=== PATIENT | female | born 1960 | race African-American/Black ===

== ENCOUNTER 2024-03-11 04:06 | Emergency (ER) | payer MEDICARE, OTHER ==
[~2024-03-11] VITALS: Ht 170.2 cm; Wt 83.9 kg
[2024-03-11] MEDS ORDERED: ASPIRIN 325 MG TABLET ONE (04:27)
[2024-03-11] MEDS: ASPIRIN 325 MG TABLET PO ONE (04:29)
[2024-03-11 05:00] LABS: BASOPHILS % (AUTO) 0.5 % (0.0-2.0); EOSINOPHILS # (AUTO) 0.4 K/uL (0.0-0.7); EOSINOPHILS % (AUTO) 3.5 % (0.0-6.0); HEMATOCRIT 35 % (33-45); HEMOGLOBIN 11.7 g/dL (11.5-14.8); LYMPHOCYTES # (AUTO) 1.7 K/uL (0.8-4.8); LYMPHOCYTES % (AUTO) 16.7 % (20.0-44.0); MEAN CORPUSCULAR HEMOGLOBIN 29 PG (26.0-33.0); MEAN CORPUSCULAR HGB CONC 34 g/dl (31.0-36.0); MEAN CORPUSCULAR VOLUME 88 fL (82-100); MONOCYTES # (AUTO) 0.9 K/uL (0.1-1.30); MONOCYTES % (AUTO) 8.9 % (2.0-12.0); NEUTROPHILS # (AUTO) 7.2 K/uL (1.8-8.9); NEUTROPHILS % (AUTO) 70.4 % (43.0-81.0); PLATELET COUNT (AUTO) 134 K/uL (150-450); RED BLOOD CELL COUNT(AUTO) 3.99 MIL/uL (4.0-5.2); WHITE BLOOD COUNT (AUTO) 10.2 K/uL (4.3-11.0)
[2024-03-11 05:10] LABS: INR 0.99 (0.91-1.10); PARTIAL THROMBOPLASTIN TIME 27.3 SEC (24.3-34.3); PROTHROMBIN TIME 10.5 SECS (9.2-11.1)
[2024-03-11 05:12] LABS: CALCIUM, SERUM 9.2 mg/dL (8.5-10.1); CARBON DIOXIDE 29 mmol/L (21-32); CHLORIDE 106 mmol/L (98-107); CREATININE 0.7 mg/dL (0.6-1.3); GLUCOSE 74 mg/dL (74-106); POTASSIUM 4.1 mmol/L (3.5-5.1); SODIUM SERUM 144 mmol/L (136-145); UREA NITROGEN, BLOOD 9 mg/dL (7-18)
[2024-03-11 05:18] LABS: ALANINE AMINOTRANSFERASE 29 U/L (12-78); ALBUMIN 3.4 g/dL (3.4-5.0); ALKALINE PHOSPHATASE 68 U/L (46-116); ASPARTATE AMINOTRANSFERASE 22 U/L (15-37); BILIRUBIN,DIRECT 0.1 mg/dL (0.0-0.2); BILIRUBIN,TOTAL 0.3 mg/dL (0.2-1.0); TOTAL PROTEIN, SERUM 7.7 g/dL (6.4-8.2)
[2024-03-11 10:09] VITALS: BP 146/76; TEMP 98.3; O2SAT 100
[2024-03-12] MEDS ORDERED: TOLT2CAP PO (03:54)
[2024-03-12] MEDS ORDERED: SITA100T PO (03:54)
[2024-03-12] MEDS ORDERED: GLIP10TA21 PO (03:54)
[2024-03-12] MEDS ORDERED: SERT50TA12 PO (03:54)
[2024-03-12] MEDS ORDERED: KERENDIA PO (03:54)
[2024-03-12] MEDS ORDERED: PALI3TAB PO (03:54)
[2024-03-12] MEDS ORDERED: LOPE2TAB25 PO (03:54)
[2024-03-12] MEDS ORDERED: LEVE250T2 PO (03:54)
[2024-03-12] MEDS ORDERED: OMEP20TA5 PO (03:54)
[2024-03-12] MEDS ORDERED: METF-440 PO (03:54)
[2024-03-12] MEDS ORDERED: LABE300T2 PO (03:54)
[2024-03-12] MEDS ORDERED: ACET-868 PO (08:20)
[2024-03-12] MEDS ORDERED: ERGO500093 PO (08:20)
== END 2024-03-11 10:11 | disposition home or self-care (01) ==
LOC: ER 04:17
DX: R07.89 Other chest pain (principal); E11.9 Type 2 diabetes mellitus without complications; I10 Essential (primary) hypertension; Z86.73 Personal history of transient ischemic attack (TIA), and cerebral infarction without residual deficits
CPT/HCPCS: 36415; 71045-TC; 80048-TC; 80076-TC; 84484-TC; 85025-TC; 85730-TC

== ENCOUNTER 2024-03-11 18:30 | Inpatient (IN) | payer MEDICARE, OTHER ==
[~2024-03-11] VITALS: Ht 162.6 cm; Wt 83.5 kg
[2024-03-11 18:53] LABS: BASOPHILS # (AUTO) 0.1 K/uL (0.0-0.2); BASOPHILS % (AUTO) 0.5 % (0.0-2.0); EOSINOPHILS # (AUTO) 0.3 K/uL (0.0-0.7); EOSINOPHILS % (AUTO) 2.5 % (0.0-6.0); HEMATOCRIT 37 % (33-45); HEMOGLOBIN 12.1 g/dL (11.5-14.8); LYMPHOCYTES # (AUTO) 2.2 K/uL (0.8-4.8); LYMPHOCYTES % (AUTO) 20.2 % (20.0-44.0); MEAN CORPUSCULAR HEMOGLOBIN 29 PG (26.0-33.0); MEAN CORPUSCULAR HGB CONC 33 g/dl (31.0-36.0); MEAN CORPUSCULAR VOLUME 88 fL (82-100); MONOCYTES # (AUTO) 1.1 K/uL (0.1-1.30); MONOCYTES % (AUTO) 9.8 % (2.0-12.0); NEUTROPHILS # (AUTO) 7.4 K/uL (1.8-8.9); PLATELET COUNT (AUTO) 142 K/uL (150-450); RED BLOOD CELL COUNT(AUTO) 4.18 MIL/uL (4.0-5.2)
[2024-03-11 19:01] LABS: CALCIUM, SERUM 9.5 mg/dL (8.5-10.1); CARBON DIOXIDE 27 mmol/L (21-32); CHLORIDE 101 mmol/L (98-107); CREATININE 0.7 mg/dL (0.6-1.3); GLUCOSE 113 mg/dL (74-106); POTASSIUM 3.9 mmol/L (3.5-5.1); SODIUM SERUM 135 mmol/L (136-145); UREA NITROGEN, BLOOD 12 mg/dL (7-18)
[2024-03-11 19:13] LABS: NT-PRO BNP 72 pg/mL (0-125)
[2024-03-11] MEDS ORDERED: MAGNESIUM HYDROXIDE 30 ML UDC PO PRN (21:30)
[2024-03-11] MEDS ORDERED: ONDANSETRON HCL/PF 4 MG/2 ML VIAL IVP PRN (21:30)
[2024-03-11] MEDS ORDERED: Z GUARD REMEDY 4 OZ OINT TP PRN (21:30)
[2024-03-11] MEDS ORDERED: ACETAMINOPHEN 325 MG TABLET PO PRN (21:30)
[2024-03-11] MEDS ORDERED: NITROGLYCERIN 0.4 MG/TAB BOTTLE SL PRN (21:30)
[2024-03-11] MEDS ORDERED: MAG HYDROX/AL HYDROX/SIMETH 30 ML UDC PO PRN (21:30)
[2024-03-11 23:00] VITALS: BP 153/81; TEMP 97.9; O2SAT 96
[2024-03-11] MEDS: ASPIRIN 81 MG TAB.CHEW PO SCH (23:00)
[2024-03-12 00:09] VITALS: BP 153/81; TEMP 97.9; O2SAT 96
[2024-03-12] MEDS ORDERED: OMEP20TA5 PO (03:54)
[2024-03-12] MEDS ORDERED: LABE300T2 PO (03:54)
[2024-03-12] MEDS ORDERED: SITA100T PO (03:54)
[2024-03-12] MEDS ORDERED: LOPE2TAB25 PO (03:54)
[2024-03-12] MEDS ORDERED: METF-440 PO (03:54)
[2024-03-12] MEDS ORDERED: LEVE250T2 PO (03:54)
[2024-03-12] MEDS ORDERED: KERENDIA PO (03:54)
[2024-03-12] MEDS ORDERED: PALI3TAB PO (03:54)
[2024-03-12] MEDS ORDERED: SERT50TA12 PO (03:54)
[2024-03-12] MEDS ORDERED: TOLT2CAP PO (03:54)
[2024-03-12] MEDS ORDERED: GLIP10TA21 PO (03:54)
[2024-03-12 04:02] VITALS: BP 136/67; TEMP 98.8; O2SAT 96
[2024-03-12 05:50] LABS: BASOPHILS % (AUTO) 0.2 % (0.0-2.0); EOSINOPHILS # (AUTO) 0.2 K/uL (0.0-0.7); EOSINOPHILS % (AUTO) 2.8 % (0.0-6.0); HEMATOCRIT 34 % (33-45); HEMOGLOBIN 11.5 g/dL (11.5-14.8); LYMPHOCYTES # (AUTO) 1.4 K/uL (0.8-4.8); LYMPHOCYTES % (AUTO) 16.1 % (20.0-44.0); MEAN CORPUSCULAR HEMOGLOBIN 29 PG (26.0-33.0); MEAN CORPUSCULAR HGB CONC 34 g/dl (31.0-36.0); MEAN CORPUSCULAR VOLUME 87 fL (82-100); MONOCYTES # (AUTO) 0.8 K/uL (0.1-1.30); MONOCYTES % (AUTO) 9.9 % (2.0-12.0); NEUTROPHILS # (AUTO) 6.1 K/uL (1.8-8.9); PLATELET COUNT (AUTO) 127 K/uL (150-450); RED BLOOD CELL COUNT(AUTO) 3.94 MIL/uL (4.0-5.2); WHITE BLOOD COUNT (AUTO) 8.6 K/uL (4.3-11.0)
[2024-03-12 06:05] LABS: ALANINE AMINOTRANSFERASE 23 U/L (12-78); ALBUMIN 3.3 g/dL (3.4-5.0); ALKALINE PHOSPHATASE 75 U/L (46-116); ASPARTATE AMINOTRANSFERASE 19 U/L (15-37); BILIRUBIN,DIRECT 0.1 mg/dL (0.0-0.2); BILIRUBIN,TOTAL 0.4 mg/dL (0.2-1.0); CARBON DIOXIDE 29 mmol/L (21-32); CHLORIDE 106 mmol/L (98-107); CREATININE 0.6 mg/dL (0.6-1.3); GLUCOSE 81 mg/dL (74-106); MAGNESIUM 1.9 mg/dL (1.8-2.4); PHOSPHORUS 4.2 mg/dL (2.5-4.9); POTASSIUM 3.5 mmol/L (3.5-5.1); SODIUM SERUM 144 mmol/L (136-145); TOTAL PROTEIN, SERUM 7.6 g/dL (6.4-8.2); UREA NITROGEN, BLOOD 10 mg/dL (7-18)
[2024-03-12 08:00] VITALS: BP 130/74; TEMP 98.8; O2SAT 94
[2024-03-12] MEDS ORDERED: ERGO500093 PO (08:20)
[2024-03-12] MEDS ORDERED: ACET-868 PO (08:20)
[2024-03-12] MEDS: LEVETIRACETAM (250 MG) 250 MG TABLET PO SCH (09:11)
[2024-03-12] MEDS: LINAGLIPTIN 5 MG TABLET PO SCH (09:13)
[2024-03-12] MEDS: SERTRALINE HCL 50 MG TABLET PO SCH (09:13)
[2024-03-12] MEDS: PANTOPRAZOLE 40 MG TABLET.DR PO SCH (09:13)
[2024-03-12] MEDS: TOLTERODINE 2 MG CAP.SR PO SCH (09:14)
[2024-03-12] MEDS: METFORMIN 500 MG TABLET PO SCH (09:14)
[2024-03-12] MEDS: LABETALOL HCL (100MG) 100 MG TABLET PO SCH (09:15)
[2024-03-12] MEDS: glipiZIDE XL 10 MG TAB.OSM.24 PO SCH (09:27)
[2024-03-12 11:07] LABS: THYROID STIMULATING HORMONE 1.61 uIU/mL (0.358-3.74)
[2024-03-12 12:00] VITALS: BP 149/71; TEMP 99.1; O2SAT 100
[2024-03-12] MEDS: METOPROLOL TARTRATE 50 MG TABLET PO SCH (12:17)
[2024-03-12 16:00] VITALS: BP 156/78; TEMP 98.2; O2SAT 96
[2024-03-12 20:00] VITALS: BP 151/80; TEMP 98.4; O2SAT 94
[2024-03-13] VITALS: BP 150/85; TEMP 98.6; O2SAT 97
[2024-03-13 05:00] VITALS: BP 135/60; TEMP 98.6; O2SAT 94
[2024-03-13 08:00] VITALS: BP 146/72; TEMP 97.3; O2SAT 95
[2024-03-13] MEDS: ATORVASTATIN 10 MG TABLET PO SCH (11:05)
[2024-03-13 16:00] VITALS: BP 165/77; TEMP 98.7; O2SAT 93
[2024-03-13] MEDS: METOPROLOL TARTRATE INJ 5 MG/5 ML AMPUL IVP PRN (19:50)
[2024-03-13] MEDS ORDERED: NITROGLYCERIN 0.4 MG/TAB BOTTLE ONE (19:56)
[2024-03-13] MEDS ORDERED: METOPROLOL TARTRATE INJ 5 MG/5 ML AMPUL ONE ×4 (19:56→20:38)
[2024-03-13] MEDS ORDERED: CT SWABBABLE VALVE TRANS SET 1 EA INFUS.SET MC ONE (19:56)
[2024-03-13] MEDS ORDERED: IOHEXOL-350 100 ML VIAL IV ONE (19:56)
[2024-03-13] MEDS ORDERED: IV NS 0.9% 250 ML IV ONE (19:57)
[2024-03-13] MEDS: NITROGLYCERIN 0.4 MG/TAB BOTTLE SL ONE (20:45)
[2024-03-13 21:50] VITALS: BP 137/72; TEMP 98.6; O2SAT 95
[2024-03-14 08:00] VITALS: BP 161/71; TEMP 98.6; O2SAT 94
[2024-03-14 16:00] VITALS: BP 162/67; TEMP 99.2; O2SAT 96
[2024-03-14] MEDS: PALIPERIDONE 3 MG PO SCH (17:26)
[2024-03-14 20:00] VITALS: BP 170/76; TEMP 97.2; O2SAT 97
[2024-03-14 21:50] VITALS: BP 121/71; TEMP 97.8; O2SAT 96
[2024-03-15 08:00] VITALS: BP 158/78; TEMP 97.5; O2SAT 98
[2024-03-15 16:00] VITALS: BP 154/74; TEMP 98.6; O2SAT 96
[2024-03-15 20:00] VITALS: BP 135/63; TEMP 98.4; O2SAT 96
[2024-03-15] MEDS ORDERED: DEXTROSE 50%-WATER 50 ML DISP.SYRIN IV PRN (23:30)
[2024-03-16] MEDS: BLOOD SUGAR DIAGNOSTIC 1 EACH STRIP IN SCH (00:09)
[2024-03-16 06:30] LABS: INR 1.02 (0.91-1.10); PARTIAL THROMBOPLASTIN TIME 27.1 SEC (24.3-34.3); PROTHROMBIN TIME 10.8 SECS (9.2-11.1)
[2024-03-16 06:33] LABS: BASOPHILS % (AUTO) 0.5 % (0.0-2.0); EOSINOPHILS # (AUTO) 0.3 K/uL (0.0-0.7); EOSINOPHILS % (AUTO) 3.1 % (0.0-6.0); HEMATOCRIT 36 % (33-45); HEMOGLOBIN 12.1 g/dL (11.5-14.8); LYMPHOCYTES # (AUTO) 2.2 K/uL (0.8-4.8); LYMPHOCYTES % (AUTO) 25.3 % (20.0-44.0); MEAN CORPUSCULAR HEMOGLOBIN 29 PG (26.0-33.0); MEAN CORPUSCULAR HGB CONC 34 g/dl (31.0-36.0); MEAN CORPUSCULAR VOLUME 86 fL (82-100); MONOCYTES # (AUTO) 0.8 K/uL (0.1-1.30); NEUTROPHILS # (AUTO) 5.3 K/uL (1.8-8.9); NEUTROPHILS % (AUTO) 62.1 % (43.0-81.0); PLATELET COUNT (AUTO) 175 K/uL (150-450); RED BLOOD CELL COUNT(AUTO) 4.18 MIL/uL (4.0-5.2); RED CELL DISTRIBUTION WIDTH 13.5 % (11.5-15.0); WHITE BLOOD COUNT (AUTO) 8.6 K/uL (4.3-11.0)
[2024-03-16 06:44] LABS: CALCIUM, SERUM 9.3 mg/dL (8.5-10.1); CREATININE 0.6 mg/dL (0.6-1.3); POTASSIUM 3.9 mmol/L (3.5-5.1)
[2024-03-16 08:00] VITALS: BP 161/64; TEMP 98.2; O2SAT 98
[2024-03-16] MEDS ORDERED: LIDOCAINE HCL/MPF 1% 30 ML VIAL IJ ONE (12:11)
[2024-03-16] MEDS ORDERED: IODIXANOL 150 ML IV ONE (12:11)
[2024-03-16] MEDS ORDERED: NITROGLYCERIN IN 5 % DEXTROSE 250 ML IV ONE (12:12)
[2024-03-16] MEDS ORDERED: IV SET PRIMARY PUMP SET 1 EA INFUS.SET MC ONE (12:14)
[2024-03-16] MEDS ORDERED: IV NS 0.9% 500 ML IV ONE (12:14)
[2024-03-16] MEDS ORDERED: FENTANYL PF 100MCG/2ML AMPUL ONE (13:10)
[2024-03-16] MEDS ORDERED: MIDAZOLAM HCL 2 MG/2ML VIAL ONE (13:10)
[2024-03-16 16:00] VITALS: BP 157/80; TEMP 98.1; O2SAT 97
[2024-03-16] MEDS: INSULIN REGULAR, HUMAN 100 UNIT/ML 3 ML VIAL SQ PRN (17:31)
[2024-03-16 20:00] VITALS: BP 155/75; TEMP 98.1; O2SAT 95
[2024-03-17] MEDS ORDERED: DEXTROSE 50%-WATER 50 ML DISP.SYRIN IV PRN (00:30)
[2024-03-17] MEDS: INSULIN REGULAR, HUMAN 100 UNIT/ML 3 ML VIAL SQ PRN (00:39)
[2024-03-17] MEDS: BLOOD SUGAR DIAGNOSTIC 1 EACH STRIP IN SCH (00:39)
[2024-03-17 07:30] VITALS: BP 168/73; TEMP 98.4; O2SAT 96
[2024-03-17] MEDS: hydrALAZINE HCL 50 MG TABLET PO SCH (08:47)
[2024-03-17] MEDS: ISOSORBIDE DINITRATE (20MG) 20 MG TABLET PO SCH (08:48)
[2024-03-17 16:14] VITALS: BP 114/74; TEMP 97.7; O2SAT 99
[2024-03-18] MEDS ORDERED: HOME MED MISCELLANEOUS PO SCH (09:00)
== END 2024-03-17 17:57 | DRG 206 ==
LOC: ER 18:35 → TELE 22:16 → MED 03-13 11:25
PROVIDERS: ADMIT Nurse Practitioner Family; ATTEND Internal Medicine
PROC: 4A023N7 Measurement of Cardiac Sampling and Pressure, Left Heart, Percutaneous Approach (ICD-10-PCS; principal; 2024-03-16)
PROC: B211YZZ Fluoroscopy of Multiple Coronary Arteries using Other Contrast (ICD-10-PCS; 2024-03-16)
DX: M94.0 Chondrocostal junction syndrome [Tietze] (principal); E87.1 Hypo-osmolality and hyponatremia; E78.5 Hyperlipidemia, unspecified; E66.9 Obesity, unspecified; Z95.0 Presence of cardiac pacemaker; Z86.73 Personal history of transient ischemic attack (TIA), and cerebral infarction without residual deficits; K21.9 Gastro-esophageal reflux disease without esophagitis; Z79.84 Long term (current) use of oral hypoglycemic drugs; Z79.899 Other long term (current) drug therapy; I10 Essential (primary) hypertension; Z95.2 Presence of prosthetic heart valve; Z68.31 Body mass index [BMI] 31.0-31.9, adult; I25.10 Atherosclerotic heart disease of native coronary artery without angina pectoris; E11.9 Type 2 diabetes mellitus without complications
CPT/HCPCS: 36415; 71045-TC; 75574; 80048-TC; 80061-TC; 80076-TC; 82962-TC; 83735-TC; 83880; 84100-TC; 84439-TC; 84443-TC; 84484-TC; 85025-TC; 85610-TC; 85730-TC; 93307-TC; 97110-TC; 97112-TC; 97116-TC; 97530-TC; A4223; G0378; J1644; J1815; J2250; J3010; J3490; J7040; J7050; Q9967